=== PATIENT | male | born 1960 | race Caucasian/White ===

== ENCOUNTER 2016-06-07 17:43 | Emergency (ER) | payer OTHER ==
[~2016-06-07] VITALS: Ht 172.7 cm; Wt 97.0 kg
[2016-06-07 18:00] VITALS: BP 151/100; PULSE 102; RESP 20; TEMP 97.4; O2SAT 96
[2016-06-07 19:07] LABS: AMPHETAMINE, URINE NEG (NEG); BARBITURATES, URINE NEG (NEG); COCAINE, URINE POS (NEG)
[2016-06-07 19:17] LABS: ANION GAP 12 MEQ/L (5-15); AST (GOT) 120 U/L (15-37); BLOOD UREA NITROGEN 3 MG/DL (7-18); CHLORIDE 103 MEQ/L (98-107); GLOMERULAR FILTRATION RATE 83 ML/MIN (>89); POTASSIUM 3.5 MEQ/L (3.5-5.1); SODIUM (NA) 140 MEQ/L (136-145)
[2016-06-07 19:24] LABS: ALKALINE PHOSPHATASE 105 U/L (45-117); ALT (GPT) 72 U/L (12-78); TOTAL BILIRUBIN ADULT 0.7 MG/DL (0.2-1.0)
--- NOTE | 2016-06-07 19:29 | PD ---
HPI Chief Complaint: Psychiatric Symptoms Time Seen by Provider: 19:25 Travel History International Travel<30 days: No Contact w/Intl Traveler<30days: No Traveled to known affect area: No History of Present Illness HPI 55-year-old male that presents to the ED for evaluation of Sage act. Patient was prescribed by police after apparently he was found intoxicated and making suicidal statements. Patient has a history of chronic alcohol abuse and has been here before for same. Patient denies any medical problems and states that he used to be on medications but no longer takes them because he has no follow- up. He denies any homicidal or suicidal ideation to me stating that now that he 's been sleeping he feels better. Per patient he did drink a lot today. He states using cocaine the past. Denies any chest or shortness of breath. No abdominal pain. No hallucinations. History of depression and states that he self medicates with alcohol. Denies any allergies to medication. Other medical problems. Has history of PTSD. PFSH Past Medical History Hx Anticoagulant Therapy: No Arthritis: Yes Anxiety: Yes Depression: Yes Heart Rhythm Problems: No Cancer: No Cardiac Catheterization: No Cardiovascular Problems: No High Cholesterol: No Chemotherapy: No Congestive Heart Failure: No Cerebrovascular Accident: No Diabetes: No Patient Takes Glucophage: No Diminished Hearing: No Endocrine: No Genitourinary: No Hypertension: Yes Immune Disorder: No Implanted Vascular Access Dvce: No Neurologic: Yes Psychiatric: Yes (PTSD) Reproductive: No Respiratory: No Integumentary: Yes Immunizations Current: Yes Tetanus Vaccination: < 5 Years Influenza Vaccination: No Past Surgical History Abdominal Surgery: Yes (hernia x 2) Coronary Artery Bypass Graft: No Hysterectomy: No Other Surgery: Yes (R HAND, HEMMHROIDECTOMY X 2, TESTICULAR) Social History Alcohol Use: Yes (DAILY "TOO MUCH") Tobacco Use: Yes (<1PPD) Substance Use: Yes Allergies-Medications (Allergen,Severity, Reaction): Coded Allergies: No Known Allergies (Unverified , 12/22/15) Reported Meds & Prescriptions Reported Meds & Active Scripts Active No Active Prescriptions or Reported Medications Review of Systems ROS Limitations: Intoxication Except as stated in HPI: all other systems reviewed are Neg Physical Exam Exam Limitations: Intoxication Narrative GENERAL: SKIN: Warm and dry. HEAD: Atraumatic. Normocephalic. EYES: Pupils equal and round. No scleral icterus. No injection or drainage. ENT: No nasal bleeding or discharge. Mucous membranes pink and moist. NECK: Trachea midline. No JVD. CARDIOVASCULAR: Regular rate and rhythm. No murmurs, S3, S4. RESPIRATORY: No accessory muscle use. Clear to auscultation. Breath sounds equal bilaterally. GASTROINTESTINAL: Abdomen soft, non-tender, nondistended. Hepatic and splenic margins not palpable. MUSCULOSKELETAL: Extremities without clubbing, cyanosis, or edema. No obvious deformities. Full range of motion of the upper and lower extremities bilaterally. 2+ pulses bilaterally. NEUROLOGICAL: Awake and alert. No obvious cranial nerve deficits. Motor grossly within normal limits. Five out of 5 muscle strength in the arms and legs. Normal speech. PSYCHIATRIC: Intoxicated mood and affect; insight and judgment normal. Data Data Last Documented VS Vital Signs Date Time Temp Pulse Resp B/P Pulse Ox O2 Delivery O2 Flow Rate FiO2 06/07/16 18:00 97.4 102 20 151/100 96 Room Air Orders Diet Regular Basic (06/07/16 Dinner) Complete Blood Count With Diff (06/07/16 18:34) Comprehensive Metabolic Panel (06/07/16 18:34) Drug Screen, Random Urine (06/07/16 18:34) Alcohol (Ethanol) (06/07/16 18:34) Psych Screen (06/07/16 18:34) Labs Laboratory Tests Test 06/07/16 06/07/16 18:20 18:40 Sodium Level 140 MEQ/L Potassium Level 3.5 MEQ/L Chloride Level 103 MEQ/L Carbon Dioxide Level 25.0 MEQ/L Anion Gap 12 MEQ/L Blood Urea Nitrogen 3 MG/DL Creatinine 0.94 MG/DL Estimat Glomerular Filtration 83 ML/MIN Rate Random Glucose 202 MG/DL Calcium Level 8.3 MG/DL Aspartate Amino Transf 120 U/L (AST/SGOT) Albumin 4.1 GM/DL Urine Opiates Screen NEG Urine Barbiturates Screen NEG Urine Amphetamines Screen NEG Urine Benzodiazepines Screen NEG Urine Cocaine Screen POS Urine Cannabinoids Screen NEG MDM Medical Decision Making Medical Screen Exam Complete: Yes Emergency Medical Condition: Yes Medical Record Reviewed: Yes Interpretation(s) Tox screen positive for cocaine and alcohol BMP Diagram 06/07/16 18:20 Differential Diagnosis Depression versus suicidal ideation versus anxiety versus adjustment disorder versus mood disorder versus bipolar disorder versus schizophrenia versus paranoid disorder versus psychosis versus substance abuse versus alcohol abuse versus alcohol induced psychosis versus homicidality addition versus cutting versus personality disorder Narrative Course 55-year-old male that presents to the ED for evaluation of a Sage act. Patient was properly examined and was found to have signs and symptoms consistent appears to be alcohol abuse and psychiatric illness. Patient will have blood work. Blood work was within normal limits. Patient was medically cleared. Okay to be seen by psych. Mental health screening was discussed with the patient. Diagnosis Primary Impression: Suicidal ideation Additional Impression: Alcohol abuse Scripts No Active Prescriptions or Reported Meds Brandon Julien Jun 07, 2016 19:29
[2016-06-07 19:42] LABS: AUTOMATED NEUTROPHIL # 3.5 TH/MM3 (1.8-7.7); EOSINOPHIL # 0.1 TH/MM3 (0-0.4); EOSINOPHIL % 1.1 % (0.0-4.0); HEMATOCRIT 44.9 % (39.0-51.0); HEMO FLAGS DIFF FINAL; LYMPH % 15.9 % (9.0-44.0); LYMPHOCYTE # 0.8 TH/MM3 (1.0-4.8); MEAN CELL VOLUME 93.4 FL (80.0-100.0); MEAN CORPUSCULAR HEMOGLOBIN 32.9 PG (27.0-34.0); MEAN CORPUSCULAR HGB CONC 35.2 % (32.0-36.0); MONO % 11.9 % (0.0-8.0); NEUT % 70.1 % (16.0-70.0); PLATELET COUNT 179 TH/MM3 (150-450); RED CELL DISTRIBUTION WIDTH 13.4 % (11.6-17.2)
[2016-06-07] MEDS ORDERED: LORazepam 2 MG/ML VIAL IV PUSH PRN ×4 (20:45)
[2016-06-07] MEDS ORDERED: ACETAMINOPHEN 325 MG TAB PO PRN (20:45)
[2016-06-07] MEDS ORDERED: LORazepam 2 MG TAB PO PRN (20:45)
[2016-06-07] MEDS ORDERED: LORazepam 1 MG TAB PO PRN (20:45)
[2016-06-07] MEDS ORDERED: FLUMAZENIL 0.5 MG/5 ML VIAL IV PUSH PRN (20:45)
[2016-06-07] MEDS ORDERED: ONDANSETRON HCL 4 MG/2 ML VIAL IV PUSH PRN (20:45)
[2016-06-07 23:28] VITALS: BP 133/77; PULSE 104; RESP 18; O2SAT 96
== END 2016-06-08 00:47 ==
LOC: NEPJ 17:43
DX: F10.14 Alcohol abuse with alcohol-induced mood disorder (principal); F10.129 Alcohol abuse with intoxication, unspecified; R45.851 Suicidal ideations
CPT/HCPCS: 80053; 80307; 80320; 85025; 99285

== ENCOUNTER 2016-07-30 16:21 | Emergency (ER) | payer OTHER ==
[~2016-07-30] VITALS: Ht 172.7 cm; Wt 89.5 kg
[2016-07-30 16:23] VITALS: BP 188/121; PULSE 104; RESP 16; TEMP 97.9; O2SAT 97
--- NOTE | 2016-07-30 17:49 | PD ---
HPI Chief Complaint: Diabetic Time Seen by Provider: 17:45 Travel History International Travel<30 days: No Contact w/Intl Traveler<30days: No History of Present Illness HPI Patient is a 55-year-old male presenting to the emergency department for evaluation of elevated blood sugar readings at home. Patient states he was never formally diagnosed with diabetes however he started noticing visual changes as well as increased thirst suddenly started checking his blood sugars at home 2 weeks ago. Since that time he's had a reading over 600, 429 and then he started changing his diet and only drinking water and the blood sugars came down to the lower 200s. Patient also reports having some chest discomfort in the mid sternum wall waiting in the emergency department today. He has a history of hypertension but is not on any medications, he states that he cannot get to the [place] [facility] which is approximately a mile and a half away from his home. He does endorse daily tobacco use as well as alcohol use. He states that he has cut back on his alcohol consumption since his blood sugar readings have been elevated. [facility] had elevated blood sugar readings and was advised to come to emergency department immediately for evaluation. PFSH Past Medical History Hx Anticoagulant Therapy: No Arthritis: Yes Anxiety: Yes Depression: Yes Heart Rhythm Problems: No Cancer: No Cardiac Catheterization: No Cardiovascular Problems: No High Cholesterol: No Chemotherapy: No Congestive Heart Failure: No Cerebrovascular Accident: No Diabetes: No Diminished Hearing: No Endocrine: No Genitourinary: No Hypertension: Yes Immune Disorder: No Implanted Vascular Access Dvce: No Neurologic: Yes Psychiatric: Yes (PTSD) Reproductive: No Respiratory: No Integumentary: Yes Immunizations Current: Yes Past Surgical History Abdominal Surgery: Yes (hernia x 2) Coronary Artery Bypass Graft: No Hysterectomy: No Other Surgery: Yes (R HAND, HEMMHROIDECTOMY X 2, TESTICULAR) Social History Alcohol Use: Yes (DAILY "TOO MUCH") Tobacco Use: Yes (<1PPD) Substance Use: Yes Allergies-Medications (Allergen,Severity, Reaction): Coded Allergies: No Known Allergies (Unverified , 07/30/16) Reported Meds & Prescriptions Reported Meds & Active Scripts Active No Active Prescriptions or Reported Medications Review of Systems Except as stated in HPI: all other systems reviewed are Neg Eyes: Positive: Visual changes Cardiovascular: Positive: Chest Pain or Discomfort Respiratory: No: Shortness of Breath Gastrointestinal: No: Nausea, Abdominal Pain Neurologic: No: Dizziness Endocrine: Positive: Polydipsia Physical Exam Narrative GENERAL: Well-developed, well-nourished, alert male. Appears older than stated age, resting comfortably in no acute distress. SKIN: Warm and dry. HEAD: Atraumatic. Normocephalic. EYES: Pupils equal and round. No scleral icterus. No injection or drainage. ENT: No nasal bleeding or discharge. Mucous membranes pink and moist. NECK: Trachea midline. No JVD. CARDIOVASCULAR: Regular rate and rhythm. No murmur appreciated. RESPIRATORY: No accessory muscle use. Clear to auscultation. Breath sounds equal bilaterally. GASTROINTESTINAL: Abdomen soft, non-tender, nondistended. Hepatic and splenic margins not palpable. MUSCULOSKELETAL: No obvious deformities. No clubbing. No cyanosis. No edema. NEUROLOGICAL: Awake and alert. No obvious cranial nerve deficits. Motor grossly within normal limits. Normal speech. PSYCHIATRIC: Appropriate mood and affect; insight and judgment normal. Data Data Last Documented VS Vital Signs Date Time Temp Pulse Resp B/P Pulse Ox O2 Delivery O2 Flow Rate FiO2 07/30/16 18:50 85 160/105 07/30/16 18:44 98 07/30/16 18:37 20 Room Air 07/30/16 16:23 97.9 Orders Electrocardiogram (07/30/16 17:43) Ckmb (Isoenzyme) Profile (07/30/16 17:43) Complete Blood Count With Diff (07/30/16 17:43) Comprehensive Metabolic Panel (07/30/16 17:43) Magnesium (Mg) (07/30/16 17:43) Prothrombin Time / Inr (Pt) (07/30/16 17:43) Act Partial Throm Time (Ptt) (07/30/16 17:43) Troponin I (07/30/16 17:43) Chest, Pa & Lat (07/30/16 17:43) Blood Gas Venous (Vbg) (07/30/16 17:43) Urinalysis - C+S If Indicated (07/30/16 18:04) Labs Laboratory Tests Test 07/30/16 18:04 White Blood Count 9.2 TH/MM3 Red Blood Count 4.63 MIL/MM3 Hemoglobin 15.4 GM/DL Hematocrit 43.9 % Mean Corpuscular Volume 94.9 FL Mean Corpuscular Hemoglobin 33.2 PG Mean Corpuscular Hemoglobin 35.0 % Concent Red Cell Distribution Width 12.6 % Platelet Count 259 TH/MM3 Mean Platelet Volume 7.9 FL Neutrophils (%) (Auto) 84.6 % Lymphocytes (%) (Auto) 6.1 % Monocytes (%) (Auto) 7.5 % Eosinophils (%) (Auto) 1.5 % Basophils (%) (Auto) 0.3 % Neutrophils # (Auto) 7.8 TH/MM3 Lymphocytes # (Auto) 0.6 TH/MM3 Monocytes # (Auto) 0.7 TH/MM3 Eosinophils # (Auto) 0.1 TH/MM3 Basophils # (Auto) 0.0 TH/MM3 CBC Comment DIFF FINAL Differential Comment Prothrombin Time 11.4 SEC Prothromb Time International 1.0 RATIO Ratio Activated Partial 34.1 SEC Thromboplast Time Urine Color YELLOW Urine Turbidity CLEAR Urine pH 5.5 Urine Specific Thermal 1.011 Urine Protein NEG mg/dL Urine Glucose (UA) 300 mg/dL Urine Ketones TRACE mg/dL Urine Occult Blood NEG Urine Nitrite NEG Urine Bilirubin NEG Urine Urobilinogen LESS THAN 2.0 MG/DL Urine Leukocyte Esterase NEG Urine WBC LESS THAN 1 /hpf Microscopic Urinalysis Comment CULT NOT INDICATED Sodium Level 133 MEQ/L Potassium Level 4.3 MEQ/L Chloride Level 97 MEQ/L Carbon Dioxide Level 26.4 MEQ/L Anion Gap 10 MEQ/L Blood Urea Nitrogen 10 MG/DL Creatinine 0.87 MG/DL Estimat Glomerular Filtration 90 ML/MIN Rate Random Glucose 236 MG/DL Calcium Level 9.0 MG/DL Magnesium Level 1.6 MG/DL Total Bilirubin 0.6 MG/DL Aspartate Amino Transf 70 U/L (AST/SGOT) Alanine Aminotransferase 74 U/L (ALT/SGPT) Alkaline Phosphatase 79 U/L Total Creatine Kinase 31 U/L Troponin I LESS THAN 0.02 NG/ML Total Protein 7.7 GM/DL Albumin 3.8 GM/DL MDM Medical Decision Making Medical Screen Exam Complete: Yes Emergency Medical Condition: Yes Interpretation(s) Vital Signs Date Time Temp Pulse Resp B/P Pulse Ox O2 Delivery O2 Flow Rate FiO2 07/30/16 16:23 97.9 104 16 188/121 97 Differential Diagnosis Hypertensive urgency versus acute coronary syndrome versus type 2 diabetes versus DKA versus cardiac arrhythmia versus electrolyte abnormality versus dehydration versus other Narrative Course Patient's 55-year-old male presenting to the emergency department evaluation of elevated blood sugar readings as well as chest pain. Patient has not had good follow-up with primary care. He has a history of hypertension which he no longer takes medications for due to transportation issues. Workup initiated in triage, care patient will be transferred to provide her with a medical bed is available. Scripts No Active Prescriptions or Reported Meds Vianney Andrew Jul 30, 2016 17:49
--- NOTE | 2016-07-30 18:20 | RADRPT ---
EXAM DATE/TIME: 07/30/2016 18:04 [facility] COMPARISON: No previous studies available for comparison. INDICATIONS : Chest pain. MEDICAL HISTORY : Diabetes mellitus type II. SURGICAL HISTORY : None. ENCOUNTER: Initial ACUITY: 1 day PAIN SCORE: 10 LOCATION: Left middle chest. FINDINGS: PA and lateral views of the chest demonstrate the lungs to be symmetrically aerated without evidence of mass, infiltrate or effusion. The cardiomediastinal contours are unremarkable. Osseous structure s are intact. CONCLUSION: No acute disease. Davi Crowell MD on July 30, 2016 at 18:19 Board Certified Radiologist. This report was verified electronically.
[2016-07-30 18:27] LABS: AUTOMATED NEUTROPHIL # 7.8 TH/MM3 (1.8-7.7); BASOPHIL % 0.3 % (0.0-2.0); EOSINOPHIL # 0.1 TH/MM3 (0-0.4); EOSINOPHIL % 1.5 % (0.0-4.0); HEMATOCRIT 43.9 % (39.0-51.0); HEMO FLAGS DIFF FINAL; LYMPH % 6.1 % (9.0-44.0); LYMPHOCYTE # 0.6 TH/MM3 (1.0-4.8); MEAN CELL VOLUME 94.9 FL (80.0-100.0); MEAN CORPUSCULAR HEMOGLOBIN 33.2 PG (27.0-34.0); MONO % 7.5 % (0.0-8.0); NEUT % 84.6 % (16.0-70.0); PLATELET COUNT 259 TH/MM3 (150-450); RED BLOOD COUNT 4.63 MIL/MM3 (4.50-5.90); RED CELL DISTRIBUTION WIDTH 12.6 % (11.6-17.2); WHITE BLOOD COUNT 9.2 TH/MM3 (4.0-11.0)
[2016-07-30 18:31] LABS: BLOOD, URINE NEG (NEG); GLUCOSE,URINE 300 mg/dL (NEG); KETONE, URINE TRACE mg/dL (NEG); NITRITE,URINE NEG (NEG); PH, URINE 5.5 (5.0-8.5); URINE COLOR YELLOW (YELLW/STRAW)
[2016-07-30 18:35] LABS: COMMENT (UR) CULT NOT INDICATED; CULTURE IF INDICATED CULT NOT INDICATED
[2016-07-30 18:37] VITALS: BP 166/102; PULSE 88; RESP 20; O2SAT 96
[2016-07-30 18:50] VITALS: BP 160/105; PULSE 85
[2016-07-30 18:54] LABS: APTT (PATIENT) 34.1 SEC (24.3-30.1); PROTHROMBIN TIME - PATIENT 11.4 SEC (9.8-11.6)
[2016-07-30 18:55] LABS: ANION GAP 10 MEQ/L (5-15); AST (GOT) 70 U/L (15-37); BICARBONATE 26.4 MEQ/L (21.0-32.0); BLOOD UREA NITROGEN 10 MG/DL (7-18); CHLORIDE 97 MEQ/L (98-107); GLOMERULAR FILTRATION RATE 90 ML/MIN (>89); MAGNESIUM 1.6 MG/DL (1.5-2.5); POTASSIUM 4.3 MEQ/L (3.5-5.1); SODIUM (NA) 133 MEQ/L (136-145)
[2016-07-30 19:00] LABS: ALKALINE PHOSPHATASE 79 U/L (45-117); ALT (GPT) 74 U/L (12-78); TOTAL BILIRUBIN ADULT 0.6 MG/DL (0.2-1.0)
[2016-07-30 19:06] LABS: CREATINE KINASE 31 U/L (39-308)
--- NOTE | 2016-07-30 19:59 | PD ---
Physical Exam Date Seen by Provider: Jul 30, 2016 Data Data Last Documented VS Vital Signs Date Time Temp Pulse Resp B/P Pulse Ox O2 Delivery O2 Flow Rate FiO2 07/30/16 18:50 85 160/105 07/30/16 18:44 98 07/30/16 18:37 20 Room Air 07/30/16 16:23 97.9 Orders Electrocardiogram (07/30/16 17:43) Ckmb (Isoenzyme) Profile (07/30/16 17:43) Complete Blood Count With Diff (07/30/16 17:43) Comprehensive Metabolic Panel (07/30/16 17:43) Magnesium (Mg) (07/30/16 17:43) Prothrombin Time / Inr (Pt) (07/30/16 17:43) Act Partial Throm Time (Ptt) (07/30/16 17:43) Troponin I (07/30/16 17:43) Chest, Pa & Lat (07/30/16 17:43) Blood Gas Venous (Vbg) (07/30/16 17:43) Urinalysis - C+S If Indicated (07/30/16 18:04) Metformin (Glucophage) (07/30/16 20:00) Lisinopril (Prinivil) (07/30/16 20:00) Labs Laboratory Tests Test 07/30/16 18:04 White Blood Count 9.2 TH/MM3 Red Blood Count 4.63 MIL/MM3 Hemoglobin 15.4 GM/DL Hematocrit 43.9 % Mean Corpuscular Volume 94.9 FL Mean Corpuscular Hemoglobin 33.2 PG Mean Corpuscular Hemoglobin 35.0 % Concent Red Cell Distribution Width 12.6 % Platelet Count 259 TH/MM3 Mean Platelet Volume 7.9 FL Neutrophils (%) (Auto) 84.6 % Lymphocytes (%) (Auto) 6.1 % Monocytes (%) (Auto) 7.5 % Eosinophils (%) (Auto) 1.5 % Basophils (%) (Auto) 0.3 % Neutrophils # (Auto) 7.8 TH/MM3 Lymphocytes # (Auto) 0.6 TH/MM3 Monocytes # (Auto) 0.7 TH/MM3 Eosinophils # (Auto) 0.1 TH/MM3 Basophils # (Auto) 0.0 TH/MM3 CBC Comment DIFF FINAL Differential Comment Prothrombin Time 11.4 SEC Prothromb Time International 1.0 RATIO Ratio Activated Partial 34.1 SEC Thromboplast Time Urine Color YELLOW Urine Turbidity CLEAR Urine pH 5.5 Urine Specific Rose 1.011 Urine Protein NEG mg/dL Urine Glucose (UA) 300 mg/dL Urine Ketones TRACE mg/dL Urine Occult Blood NEG Urine Nitrite NEG Urine Bilirubin NEG Urine Urobilinogen LESS THAN 2.0 MG/DL Urine Leukocyte Esterase NEG Urine WBC LESS THAN 1 /hpf Microscopic Urinalysis Comment CULT NOT INDICATED Sodium Level 133 MEQ/L Potassium Level 4.3 MEQ/L Chloride Level 97 MEQ/L Carbon Dioxide Level 26.4 MEQ/L Anion Gap 10 MEQ/L Blood Urea Nitrogen 10 MG/DL Creatinine 0.87 MG/DL Estimat Glomerular Filtration 90 ML/MIN Rate Random Glucose 236 MG/DL Calcium Level 9.0 MG/DL Magnesium Level 1.6 MG/DL Total Bilirubin 0.6 MG/DL Aspartate Amino Transf 70 U/L (AST/SGOT) Alanine Aminotransferase 74 U/L (ALT/SGPT) Alkaline Phosphatase 79 U/L Total Creatine Kinase 31 U/L Troponin I LESS THAN 0.02 NG/ML Total Protein 7.7 GM/DL Albumin 3.8 GM/DL [facility] Medical Record Reviewed: Yes Supervised Visit with JARED: Yes Interpretation(s) Vital Signs Date Time Temp Pulse Resp B/P Pulse Ox O2 Delivery O2 Flow Rate FiO2 07/30/16 18:50 85 160/105 07/30/16 18:44 87 98 07/30/16 18:37 88 20 166/102 96 Room Air 07/30/16 16:23 97.9 104 16 188/121 97 CBC & BMP Diagram 07/30/16 18:04 Last Impressions Chest X-Ray 07/30/16 1743 Signed Impressions: Service Date/Time: Saturday, July 30, 2016 18:04 - CONCLUSION: No acute disease. Davi Crowell MD Differential Diagnosis New-onset diabetes, Hypertension, hypertensive urgency, DKA, electrolyte abnormality Narrative Course I, Dr. Saenz, have reviewed the advance practice practitioner's documentation and am in agreement, met with the patient face to face, made the diagnosis, and the medical decision making was done by me. *My assessment and Findings: Patient is a 55-year-old male who presents to emergency room for evaluation of possible new onset diabetes as well as hypertension. Patient reports that he has history of hypertension, reports that he was on lisinopril 12.5mg in the past but was changed to a different blood [facility] by the [facility] for no reason as per his recollection and patient cannot remember the name of the blood pressure medication, reports that he has since run out of his antihypertensives and has not taking any blood pressure medications in the past few months. Patient reports that he has been having some visual changes over the past 2 weeks, reports that his roommate thought that he may have diabetes and checked his blood sugar. Patient reports that his blood sugars 2 weeks ago were greater than 600. Patient reports that he has been monitoring his blood sugars and notes that his blood sugars range from the highest over 600 and the lowest BS was 198. Patient reports that he has since stopped drinking alcohol and has been watching his blood sugar carefully. Patient reports that [facility] and was told to go straight to the [facility] for evaluation. Patient at this time with no complaints. Patient reports that he feels fine, denies any chest pain or shortness of breath. Patient denies any headache or dizziness. Patient does report some polydipsia as well as polyuria which he has noticed over the past 2 weeks. Vital Signs Date Time Temp Pulse Resp B/P Pulse Ox O2 Delivery O2 Flow Rate FiO2 07/30/16 18:50 85 160/105 07/30/16 18:44 87 98 07/30/16 18:37 88 20 166/102 96 Room Air 07/30/16 16:23 97.9 104 16 188/121 97 Patient vital signs hypertensive with a blood pressure of 188/121 upon arrival to emergency room, blood pressure now is 160/105.CBC & BMP Diagram 07/30/16 18:04 Patient with no end organ damage on his lab work, BS is 236. UA shows trace ketones, 300 glucose X-ray the chest shows no acute disease Plan to restart patient on his lisinopril 12.5 mg, will start him on metformin 500 mg twice a day as patient is most likely a new onset diabetic. Patient does present to emergency room with a list of his blood sugars over the past 2 weeks, blood sugars have been elevated with a highest blood sugars greater than 600 in the lowest 188. With patient's blood sugars today of 236 and ketones in urine, patient most likely with diagnoses of diabetes. Patient understands importance of [facility] with [facility] for [facility]up Signs and symptoms of when to return to the emergency room was reviewed with patient in detail. Patient will return to emergency room as needed. Diagnosis Primary Impression: Hypertension Qualified Code: I10 - Essential hypertension Additional Impressions: Hyperglycemia Dehydration Additional Instruction: Please provide patient with a copy of his lab work at discharge Please call your doctor first thing in the morning for earliest follow-up Please return to emergency room as needed Please monitor blood sugars Med/Other Pt SpecificInfo: Prescription(s) given Scripts Metformin 500 Mg Pax691 Mg PO BIDPC #60 TAB Ref 0 With meals Prov:Delilah Saenz DO 07/30/16 Lisinopril 5 Mg Tab5 Mg PO DAILY #30 TAB Ref 0 Prov:Delilah Saenz DO 07/30/16 Disposition: 01 DISCHARGE HOME Condition: Stable Delilah Saenz DO Jul 30, 2016 19:59
[2016-07-30] MEDS ORDERED: LISINOPRIL 5 MG TAB PO ONE (20:00)
[2016-07-30] MEDS ORDERED: metFORMIN HCL 500 MG TAB PO ONE (20:00)
[2016-07-30] MEDS ORDERED: METF500T PO (20:46)
[2016-07-30] MEDS ORDERED: LISI-519 PO (20:46)
[2016-07-30 20:54] VITALS: BP 136/89
--- NOTE | 2016-07-31 20:09 | EKG ---
Date Performed: 07/30/2016 Time Performed: 18:11:20 PTAGE: 55 years EKG: Sinus rhythm POSSIBLE LEFT ATRIAL ENLARGEMENT BORDERLINE ECG PREVIOUS TRACING : 09/21/2015 02.43 Compared to prior tracing no significant change DOCTOR: Alessandra Wong Interpretating Date/Time 07/31/2016 20:08:06
== END 2016-07-30 21:03 | disposition home or self-care (01) ==
LOC: NEPE 16:21
DX: I10 Essential (primary) hypertension (principal); R73.9 Hyperglycemia, unspecified; E86.0 Dehydration; R07.9 Chest pain, unspecified; R63.1 Polydipsia; F43.10 Post-traumatic stress disorder, unspecified; F17.210 Nicotine dependence, cigarettes, uncomplicated
CPT/HCPCS: 71020; 80053; 81001; 82550; 83735; 84484; 85025; 85610; 85730; 93005

== ENCOUNTER 2016-11-18 17:20 | Inpatient (IN) | payer MEDICARE, OTHER ==
[~2016-11-18] VITALS: Ht 172.7 cm; Wt 83.4 kg
[~2016-11-18 17:20] MED LIST: LISI-519 PO; METF500T PO
[2016-11-18 17:22] VITALS: RESP 24
[2016-11-18 17:24] VITALS: BP 181/120; PULSE 152; RESP 26; TEMP 98.6; O2SAT 98
[2016-11-18] MEDS ORDERED: SODIUM CHLOR 0.9% 1000 ML INJ 1,000 ML IV ONE ×2 (17:34→19:00)
[2016-11-18 17:38] VITALS: O2SAT 97
[2016-11-18] MEDS ORDERED: LORazepam 2 MG/ML VIAL IVS ONE (17:45)
[2016-11-18] MEDS ORDERED: SODIUM CHLORIDE 0.9% FLUSH 10 ML FLUSH IVF PRN (17:45)
[2016-11-18 18:01] VITALS: BP 169/74; PULSE 120; RESP 22; O2SAT 98
[2016-11-18 18:25] LABS: AUTOMATED NEUTROPHIL # 6.3 TH/MM3 (1.8-7.7); BASOPHIL # 0.1 TH/MM3 (0-0.2); BASOPHIL % 0.8 % (0.0-2.0); HEMATOCRIT 44.7 % (39.0-51.0); LYMPH % 11.8 % (9.0-44.0); MEAN CELL VOLUME 98.4 FL (80.0-100.0); MEAN CORPUSCULAR HEMOGLOBIN 33.1 PG (27.0-34.0); MEAN CORPUSCULAR HGB CONC 33.6 % (32.0-36.0); MONO % 9.1 % (0.0-8.0); NEUT % 78.3 % (16.0-70.0); PLATELET COUNT 60 TH/MM3 (150-450); RED BLOOD COUNT 4.54 MIL/MM3 (4.50-5.90); RED CELL DISTRIBUTION WIDTH 15.7 % (11.6-17.2); WHITE BLOOD COUNT 8.1 TH/MM3 (4.0-11.0)
[2016-11-18 18:26] VITALS: BP 170/100; PULSE 117; RESP 20; O2SAT 99
[2016-11-18 18:32] LABS: HEMO FLAGS AUTO DIFF
[2016-11-18 18:41] LABS: ALT (GPT) 69 U/L (12-78); ANION GAP 27 MEQ/L (5-15); BICARBONATE 16.8 MEQ/L (21.0-32.0); BLOOD UREA NITROGEN 7 MG/DL (7-18); CHLORIDE 95 MEQ/L (98-107); GLOMERULAR FILTRATION RATE 48 ML/MIN (>89); MAGNESIUM 1.4 MG/DL (1.5-2.5); POTASSIUM 3.7 MEQ/L (3.5-5.1); SODIUM (NA) 139 MEQ/L (136-145)
--- NOTE | 2016-11-18 18:51 | PD ---
HPI Chief Complaint: Anxiety Time Seen by Provider: 17:28 Travel History International Travel<30 days: No Contact w/Intl Traveler<30days: No Traveled to known affect area: No History of Present Illness HPI The patient is a 55-year-old male who presents to the emergency department for anxiety. The patient states he has a history of alcohol abuse and stopped drinking 2-3 days ago. The patient normally drinks for Budwe[employer] beers per day or more, does have a history of previous alcohol withdrawal. He now complains of shaking, and extreme anxiety, and occasional illusions where he sees objects out of the corners of his eyes. The patient does not currently have a primary physician. He does complain of tremors and anxiety, denies any acute chest pain, shortness of breath, nausea, vomiting, or abdominal pain. Symptoms are moderate, possibly exacerbated by not drinking alcohol, and there are no current alleviating factors. PFSH Past Medical History Hx Anticoagulant Therapy: No Arthritis: Yes Anxiety: Yes Depression: Yes Heart Rhythm Problems: No Cancer: No Cardiac Catheterization: No Cardiovascular Problems: No High Cholesterol: No Chemotherapy: No Congestive Heart Failure: No Cerebrovascular Accident: No Diabetes: Yes Patient Takes Glucophage: Yes (metformin) Diminished Hearing: No Endocrine: No Genitourinary: No Hypertension: Yes (va took off lisinopril) Immune Disorder: No Implanted Vascular Access Dvce: No Neurologic: Yes Psychiatric: Yes (PTSD) Reproductive: No Respiratory: No Integumentary: Yes Immunizations Current: Yes Past Surgical History Abdominal Surgery: Yes (hernia x 2) Coronary Artery Bypass Graft: No Hysterectomy: No Other Surgery: Yes (R HAND, HEMMHROIDECTOMY X 2, TESTICULAR) Social History Alcohol Use: Yes (DAILY "TOO MUCH") Tobacco Use: Yes (<1PPD) Substance Use: No Allergies-Medications (Allergen,Severity, Reaction): Coded Allergies: No Known Allergies (Unverified , 07/30/16) Reported Meds & Prescriptions Reported Meds & Active Scripts Active Metformin (Metformin HCl) 500 Mg Tab 500 Mg PO BIDPC With meals Lisinopril 5 Mg Tab 5 Mg PO DAILY Review of Systems Except as stated in HPI: all other systems reviewed are Neg General / Constitutional: No: Fever HENT: Positive: Lightheadedness Cardiovascular: Positive: Tachycardia, No: Chest Pain or Discomfort Respiratory: No: Shortness of Breath Gastrointestinal: No: Nausea, Vomiting, Abdominal Pain Musculoskeletal: Positive: Weakness Neurologic: Positive: Dizziness, Tremor Psychiatric: Positive: Anxiety, Substance Abuse (alcohol abuse) Physical Exam Narrative GENERAL: Awake, alert, pleasant 55-year-old male who appears his stated age and is mildly tremulous. SKIN: Focused skin assessment warm/dry. HEAD: Atraumatic. Normocephalic. EYES: Pupils equal and round. Pupils are 3 mm bilateral and reactive. ENT: No nasal bleeding or discharge. Mucous membranes pink and moist. NECK: Trachea midline. No JVD. CARDIOVASCULAR: Regular, tachycardic with a heart rate of 130. RESPIRATORY: No accessory muscle use. Clear to auscultation. Breath sounds equal bilaterally. GASTROINTESTINAL: Abdomen soft, non-tender, nondistended. No rebound tenderness. MUSCULOSKELETAL: No obvious deformities. No clubbing. No cyanosis. No edema. Mildly tremulous. NEUROLOGICAL: Awake and alert. No obvious cranial nerve deficits. Motor grossly within normal limits. Normal speech. Alert and oriented 4. Mildly tremulous. PSYCHIATRIC: Appears slightly anxious. Data Data Last Documented VS Vital Signs Date Time Temp Pulse Resp B/P Pulse Ox O2 Delivery O2 Flow Rate FiO2 11/18/16 18:26 117 20 170/100 99 Room Air 11/18/16 17:24 98.6 Orders Complete Blood Count With Diff (11/18/16 17:34) Alcohol (Ethanol) (11/18/16 17:34) Drug Screen, Random Urine (11/18/16 17:34) Electrocardiogram (11/18/16 ) Blood Glucose (11/18/16 17:34) Ecg Monitoring (11/18/16 17:34) Iv Access Insert/Monitor (11/18/16 17:34) Oximetry (11/18/16 17:34) Comprehensive Metabolic Panel (11/18/16 17:34) Sodium Chlor 0.9% 1000 Ml Inj (Ns 1000 M (11/18/16 17:34) Sodium Chloride 0.9% Flush (Ns Flush) (11/18/16 17:45) Lorazepam Inj (Ativan Inj) (11/18/16 17:45) Magnesium (Mg) (11/18/16 17:34) Labs Laboratory Tests Test 11/18/16 17:44 White Blood Count 8.1 TH/MM3 Red Blood Count 4.54 MIL/MM3 Hemoglobin 15.0 GM/DL Hematocrit 44.7 % Mean Corpuscular Volume 98.4 FL Mean Corpuscular Hemoglobin 33.1 PG Mean Corpuscular Hemoglobin 33.6 % Concent Red Cell Distribution Width 15.7 % Platelet Count 60 TH/MM3 Mean Platelet Volume 9.0 FL Neutrophils (%) (Auto) 78.3 % Lymphocytes (%) (Auto) 11.8 % Monocytes (%) (Auto) 9.1 % Eosinophils (%) (Auto) 0.0 % Basophils (%) (Auto) 0.8 % Neutrophils # (Auto) 6.3 TH/MM3 Lymphocytes # (Auto) 1.0 TH/MM3 Monocytes # (Auto) 0.7 TH/MM3 Eosinophils # (Auto) 0.0 TH/MM3 Basophils # (Auto) 0.1 TH/MM3 CBC Comment AUTO DIFF MDM Medical Decision Making Medical Screen Exam Complete: Yes Emergency Medical Condition: Yes Medical Record Reviewed: Yes Interpretation(s) EKG reveals sinus tachycardia with a heart rate of 116. No ischemic changes or ectopy noted. Differential Diagnosis Differential diagnosis includes alcohol withdrawal, panic attack, anxiety, pulmonary embolism, hyperthyroidism, electrolyte abnormality. Narrative Course IV was established, labs are drawn and sent, and the patient was placed on cardiac telemetry monitoring and continuous pulse oximetry monitoring. EKG was ordered and interpreted. The patient was administered 2 L of IV fluids and Ativan 2 mg intravenously. The patient appears to have alcohol withdrawal, may require admission for increasing Ativan doses. The patient was signed out to the oncoming physician at 7 PM with laboratory evaluation pending. Patient will need his electrolytes replenished, most likely will need admission for alcohol withdrawal. Diagnosis Primary Impression: Alcohol withdrawal Qualified Code: F10.232 - Alcohol withdrawal, with perceptual disturbance Admitting Information Admitting Physician Requests: Admit Condition: Stable Lion Aguilar MD Nov 18, 2016 18:51
[2016-11-18 18:53] LABS: ALKALINE PHOSPHATASE 83 U/L (45-117); TOTAL BILIRUBIN ADULT 1.8 MG/DL (0.2-1.0)
[2016-11-18 19:03] LABS: AST (GOT) 100 U/L (15-37)
--- NOTE | 2016-11-18 19:29 | PD ---
Data Data Last Documented VS Vital Signs Date Time Temp Pulse Resp B/P Pulse Ox O2 Delivery O2 Flow Rate FiO2 11/18/16 18:26 117 20 170/100 99 Room Air 11/18/16 17:24 98.6 Orders Complete Blood Count With Diff (11/18/16 17:34) Alcohol (Ethanol) (11/18/16 17:34) Drug Screen, Random Urine (11/18/16 17:34) Electrocardiogram (11/18/16 ) Blood Glucose (11/18/16 17:34) Ecg Monitoring (11/18/16 17:34) Iv Access Insert/Monitor (11/18/16 17:34) Oximetry (11/18/16 17:34) Comprehensive Metabolic Panel (11/18/16 17:34) Sodium Chlor 0.9% 1000 Ml Inj (Ns 1000 M (11/18/16 17:34) Sodium Chloride 0.9% Flush (Ns Flush) (11/18/16 17:45) Lorazepam Inj (Ativan Inj) (11/18/16 17:45) Magnesium (Mg) (11/18/16 17:34) Sodium Chlor 0.9% 1000 Ml Inj (Ns 1000 M (11/18/16 19:00) Labs Laboratory Tests Test 11/18/16 17:44 White Blood Count 8.1 TH/MM3 Red Blood Count 4.54 MIL/MM3 Hemoglobin 15.0 GM/DL Hematocrit 44.7 % Mean Corpuscular Volume 98.4 FL Mean Corpuscular Hemoglobin 33.1 PG Mean Corpuscular Hemoglobin 33.6 % Concent Red Cell Distribution Width 15.7 % Platelet Count 60 TH/MM3 Mean Platelet Volume 9.0 FL Neutrophils (%) (Auto) 78.3 % Lymphocytes (%) (Auto) 11.8 % Monocytes (%) (Auto) 9.1 % Eosinophils (%) (Auto) 0.0 % Basophils (%) (Auto) 0.8 % Neutrophils # (Auto) 6.3 TH/MM3 Lymphocytes # (Auto) 1.0 TH/MM3 Monocytes # (Auto) 0.7 TH/MM3 Eosinophils # (Auto) 0.0 TH/MM3 Basophils # (Auto) 0.1 TH/MM3 CBC Comment AUTO DIFF Sodium Level 139 MEQ/L Potassium Level 3.7 MEQ/L Chloride Level 95 MEQ/L Carbon Dioxide Level 16.8 MEQ/L Anion Gap 27 MEQ/L Blood Urea Nitrogen 7 MG/DL Creatinine 1.51 MG/DL Estimat Glomerular Filtration 48 ML/MIN Rate Random Glucose 161 MG/DL Calcium Level 9.2 MG/DL Magnesium Level 1.4 MG/DL Total Bilirubin 1.8 MG/DL Aspartate Amino Transf 100 U/L (AST/SGOT) Alanine Aminotransferase 69 U/L (ALT/SGPT) Alkaline Phosphatase 83 U/L Total Protein 8.7 GM/DL Albumin 4.6 GM/DL Ethyl Alcohol Level LESS THAN 3 MG/DL MDM Supervised Visit with JARED: No Narrative Course The patient was initially evaluated by the previous provider and sent out to me at the beginning of my shift pending labs and disposition. See his note for further details. Briefly this is a 55-year-old male who presented for feeling anxious. His heart rate was 140 upon arrival to the emergency department. The patient drinks alcohol daily, however decided to stop drinking 3 days ago. He has not had anything to eat in the last 2 days because he has no appetite. He was provided 2 L of normal saline IV as well as 2mg of Ativan IV by the previous provider. On my assessment the patient is sleeping comfortably, however his heart rate remains 115. He is easily arousable and has diffuse resting tremor. CBC is unremarkable. CMP is remarkable for bicarbonate 16.8, anion gap 27, creatinine 1.5, GFR 48, random glucose 161, magnesium 1.4, AST 100. Patient is clearly withdrawing from alcohol. He also has an anion gap metabolic acidosis which is likely alcoholic ketoacidosis/starvation ketoacidosis. He will be started on D5 half-normal saline at 100 cc per hour as well as a CIWA protocol. Case discussed with hospitalist Dr. Parkinson who will admit the patient to her service. Diagnosis Primary Impression: Alcohol withdrawal Qualified Code: F10.232 - Alcohol withdrawal, with perceptual disturbance Additional Impression: Metabolic acidosis Admitting Information Admitting Physician Requests: Admit Condition: Stable Jarod Graf MD Nov 18, 2016 19:29
[2016-11-18] MEDS ORDERED: LORazepam 2 MG/ML VIAL IV PUSH PRN ×4 (19:30)
[2016-11-18] MEDS ORDERED: FLUMAZENIL 0.5 MG/5 ML VIAL IV PUSH PRN (19:30)
[2016-11-18] MEDS ORDERED: LORazepam 2 MG TAB PO PRN (19:30)
[2016-11-18] MEDS: LORazepam 1 MG TAB PO PRN (19:34)
[2016-11-18 19:35] LABS: BANDS 4 % (0-6); METAMYELOCYTES 1 % (0-1); POLYS (SEG NEUTROPHILS) 82 % (16-70); WBC DIFF SAMPLE 100
[2016-11-18 19:36] LABS: PLATELET ESTIMATE SMEAR LOW (NORMAL); PLATELET MORPHOLOGY NORMAL (NORMAL); SCAN/DIFF FINAL DIFF MANUAL
--- NOTE | 2016-11-18 19:42 | HHI.HP ---
[facility] Service [facility] Primary Care Physician [facility] Admission Diagnosis alcohol withdrawal, metabolic acidosis Diagnoses: (1) Alcohol withdrawal Diagnosis: Principal (2) BLANCA (acute kidney injury) Diagnosis: Principal (3) Dehydration Diagnosis: Principal (4) Thrombocytopenia Diagnosis: Principal (5) Tobacco abuse Diagnosis: Principal (6) HTN (hypertension) Diagnosis: Principal (7) DM (diabetes mellitus) Diagnosis: Principal Travel History International Travel<30 Days: No Contact w/Intl Traveler <30 Da: No Traveled to Known Affected Are: No History of Present Illness This is a 55-year-old male with a PMH of Anxiety, Depression, PTSD, DM, Alcohol Abuse, h/o Cocaine Abuse and Tobacco Abuse presented to the ER with complaints of anxiety and tremors. Per patient he was trying to stop drinking, quit cold turkey approx 3 days ago and has had ongoing tremors/anxiety. Denies fever, chills, cough or chest pain. On arrival, BP 181/120, HR 152, O2 sat 98% on RA, Afebrile. BP currently 170/100, HR 117. CBC unremarkable except for thrombocytopenia, platelets 60, previously 259 on 07/30/16. Creatinine 1.51, previously 0.87 on 07/30/16. AG 27. Alcohol negative. S/p 2L IVF and started on CIWA Protocol in ER. Review of Systems Except as stated in HPI: all other systems reviewed are Neg ROS: 14 point review of systems otherwise negative. Past Family Social History Past Medical History PMH: Anxiety, Depression, PTSD, DM, Alcohol Abuse, h/o Cocaine Abuse and Tobacco Abuse Past Surgical History PAST SURGICAL HISTORY: Right Hand Surgery, Hernia Repair, Hemorrhoidectomy Allergies: Coded Allergies: No Known Allergies (Unverified , 07/30/16) Family History PAST FAMILY HISTORY: Reviewed. No h/o DM or CAD Social History PAST SOCIAL HISTORY: Positive for alcohol abuse. Smokes 1ppd. H/o Cocaine Abuse, denies recent use. Physical Exam Vital Signs Vital Signs Date Time Temp Pulse Resp B/P Pulse Ox O2 Delivery O2 Flow Rate FiO2 11/18/16 18:26 117 20 170/100 99 Room Air 11/18/16 18:01 120 22 169/74 98 Room Air 11/18/16 17:38 97 Room Air 11/18/16 17:24 154 26 11/18/16 17:24 98.6 152 26 181/120 98 Room Air 11/18/16 17:22 24 Physical Exam PE: GENERAL: Middle-aged white male in no acute distress, mildly tremulous. HEENT: PERRLA, EOMI. No scleral icterus or conjunctival pallor. No lid lag or facial droop. CARDIOVASCULAR: Regular rate and rhythm. No obvious murmurs to auscultation. No chest tenderness to palpation. RESPIRATORY: No obvious rhonchi or wheezing. Clear to auscultation. Breath sounds equal bilaterally. GASTROINTESTINAL: Abdomen soft, non-tender, nondistended. BS normal. MUSCULOSKELETAL: Extremities without clubbing, cyanosis, or edema. No obvious deformities. NEUROLOGICAL: Awake, alert and oriented x4. No focal neurologic deficits. Moving both upper and lower extremities spontaneously. Laboratory Laboratory Tests Test 11/18/16 17:44 White Blood Count 8.1 Red Blood Count 4.54 Hemoglobin 15.0 Hematocrit 44.7 Mean Corpuscular Volume 98.4 Mean Corpuscular Hemoglobin 33.1 Mean Corpuscular Hemoglobin 33.6 Concent Red Cell Distribution Width 15.7 Platelet Count 60 Mean Platelet Volume 9.0 Neutrophils (%) (Auto) 78.3 Lymphocytes (%) (Auto) 11.8 Monocytes (%) (Auto) 9.1 Eosinophils (%) (Auto) 0.0 Basophils (%) (Auto) 0.8 Neutrophils # (Auto) 6.3 Lymphocytes # (Auto) 1.0 Monocytes # (Auto) 0.7 Eosinophils # (Auto) 0.0 Basophils # (Auto) 0.1 CBC Comment AUTO DIFF Differential Total Cells 100 Counted Neutrophils % (Manual) 82 Band Neutrophils % 4 Lymphocytes % 6 Monocytes % 7 Neutrophils # (Manual) 7.0 Metamyelocytes 1 Differential Comment FINAL DIFF MANUAL Platelet Estimate LOW Platelet Morphology Comment NORMAL Red Cell Morphology Comment NORMAL Sodium Level 139 Potassium Level 3.7 Chloride Level 95 Carbon Dioxide Level 16.8 Anion Gap 27 Blood Urea Nitrogen 7 Creatinine 1.51 Estimat Glomerular Filtration 48 Rate Random Glucose 161 Calcium Level 9.2 Magnesium Level 1.4 Total Bilirubin 1.8 Aspartate Amino Transf 100 (AST/SGOT) Alanine Aminotransferase 69 (ALT/SGPT) Alkaline Phosphatase 83 Total Protein 8.7 Albumin 4.6 Ethyl Alcohol Level LESS THAN 3 Result Diagram: 11/18/16174311/18/161743 Assessment and Plan Problem List: (1) Alcohol withdrawal ICD Code: F10.239 Status: Acute (2) BLANCA (acute kidney injury) ICD Code: N17.9 Status: Acute (3) Dehydration ICD Code: E86.0 Status: Acute (4) Thrombocytopenia ICD Code: D69.6 Status: Acute (5) HTN (hypertension) ICD Code: I10 Status: Acute (6) DM (diabetes mellitus) ICD Code: E11.9 Status: Acute (7) Tobacco abuse ICD Code: Z72.0 Status: Acute Assessment and Plan A/P: 1. Alcohol Abuse: w/ Acute Alcohol Withdrawal, drinks daily, last drink approx 3 days ago, progressive tremors/anxiety. +tremulous on exam. CIWA, Seizure Precautions, MVT/Thiamine/Folate replacement. 2. BLANCA: Creatinine 1.51, previously 0.87 on 07/30/16. Continue IVF, recheck labs in a.m. 3. Dehydration: secondary to acute alcohol withdrawal, AG 27, GFR 48, elevated creatinine 1.51. IVF for hydration, repeat labs in am. 4. Thrombocytopenia: Platelets 60, previously 259 on 07/30/16. No active bleeding. Will monitor, repeat labs in am. 5. HTN: BP 180's systolic, likely compounded by Acute Alcohol Withdrawal, treat withdrawal, monitor BP. Hold Lisinopril in light of renal insufficiency. 6. DM: Sliding scale w/ Accu-Cheks. Hold Metformin in light of elevated creatinine. 7. Tobacco Abuse: Counselled. Ativan/NicoDerm prn if needed. 8. DVT Prophylaxis: SCD/Teds. 9. Social work for d/c planning as needed. 10. Case discussed w/ ER physician at length. Physician Certification 2 Midnight Certification Type: Admission for Inpatient Services Order for Inpatient Services The services are ordered in accordance with Medicare regulations or non- Medicare payer requirements, as applicable. In the case of services not specified as inpatient-only, they are appropriately provided as inpatient services in accordance with the 2-midnight benchmark. Estimated LOS (days): 2 days is the estimated time the patient will need to remain in the hospital, assuming treatment plan goals are met and no additional complications. Post-Hospital Plan: Not yet determined Problem Qualifiers (1) Alcohol withdrawal: Qualified Code: F10.232 - Alcohol withdrawal, with perceptual disturbance Bernadine Parkinson MD Nov 18, 2016 19:42
[2016-11-18] MEDS ORDERED: SODIUM CHLORIDE 0.9% FLUSH 10 ML FLUSH IV FLUSH PRN (19:45)
[2016-11-18] MEDS ORDERED: BISACODYL 10 MG SUPP RECTAL PRN (19:45)
[2016-11-18] MEDS ORDERED: GLUCAGON 1 MG/ML VIAL OTHER PRN (19:45)
[2016-11-18] MEDS ORDERED: ACETAMINOPHEN 325 MG TAB PO PRN (19:45)
[2016-11-18] MEDS ORDERED: MAGNESIUM HYDROXIDE SUSP 30 ML CUP PO PRN (19:45)
[2016-11-18] MEDS ORDERED: SENNOSIDES 8.6 MG TAB PO PRN (19:45)
[2016-11-18] MEDS ORDERED: ONDANSETRON HCL 4 MG/2 ML VIAL IVP PRN (19:45)
[2016-11-18] MEDS ORDERED: DEXTROSE 50% IN WATER 50 ML VIAL(D50) IV PRN (19:45)
[2016-11-18] MEDS ORDERED: LACTULOSE SYRUP 20 GM/30 ML CUP PO PRN (19:45)
[2016-11-18] MEDS: DEXT 5%-NACL 0.45% 1000 ML INJ 1,000 ML IV SCH (20:47)
[2016-11-18] MEDS: INSULIN ASPART SUPPLEMENTAL SCALE SQ SCH (20:48)
[2016-11-18 21:23] LABS: AMPHETAMINE, URINE NEG (NEG); BARBITURATES, URINE NEG (NEG); COCAINE, URINE NEG (NEG)
[2016-11-18 22:27] VITALS: BP 156/95; PULSE 100; RESP 20; O2SAT 98
[2016-11-19] VITALS (8 sets, daily range): BP systolic 142–156; BP diastolic 89–104; PULSE 75–103; RESP 16–20; TEMP 96.4–100; O2SAT 96–98
[2016-11-19] MEDS: INSULIN ASPART SUPPLEMENTAL SCALE SQ SCH ×4 (05:39→23:44)
[2016-11-19] MEDS: DEXT 5%-NACL 0.45% 1000 ML INJ 1,000 ML IV SCH ×3 (05:41→23:41)
[2016-11-19] MEDS: LORazepam 1 MG TAB PO PRN ×3 (06:06→17:39)
[2016-11-19 07:27] LABS: AUTOMATED NEUTROPHIL # 3.3 TH/MM3 (1.8-7.7); BASOPHIL % 0.2 % (0.0-2.0); EOSINOPHIL % 0.5 % (0.0-4.0); HEMATOCRIT 37.4 % (39.0-51.0); LYMPH % 5.9 % (9.0-44.0); LYMPHOCYTE # 0.2 TH/MM3 (1.0-4.8); MEAN CELL VOLUME 95.6 FL (80.0-100.0); MEAN CORPUSCULAR HEMOGLOBIN 33.7 PG (27.0-34.0); MEAN CORPUSCULAR HGB CONC 35.2 % (32.0-36.0); MONO % 10.5 % (0.0-8.0); NEUT % 82.9 % (16.0-70.0); PLATELET COUNT 35 TH/MM3 (150-450); RED BLOOD COUNT 3.91 MIL/MM3 (4.50-5.90); RED CELL DISTRIBUTION WIDTH 15.8 % (11.6-17.2)
[2016-11-19 08:05] LABS: ALKALINE PHOSPHATASE 56 U/L (45-117); ALT (GPT) 48 U/L (12-78); ANION GAP 10 MEQ/L (5-15); AST (GOT) 65 U/L (15-37); BICARBONATE 26.9 MEQ/L (21.0-32.0); BLOOD UREA NITROGEN 5 MG/DL (7-18); CHLORIDE 97 MEQ/L (98-107); GLOMERULAR FILTRATION RATE 127 ML/MIN (>89); SODIUM (NA) 134 MEQ/L (136-145); TOTAL BILIRUBIN ADULT 1.6 MG/DL (0.2-1.0)
[2016-11-19 08:09] LABS: POTASSIUM 2.8 MEQ/L (3.5-5.1)
[2016-11-19 08:17] LABS: HEMO FLAGS AUTO DIFF
[2016-11-19 08:19] LABS: BANDS 6 % (0-6); NEUTROPHIL # MANUAL DIFF 3.3 TH/MM3 (1.8-7.7); PLATELET ESTIMATE SMEAR LOW (NORMAL); PLATELET MORPHOLOGY NORMAL (NORMAL); POLYS (SEG NEUTROPHILS) 77 % (16-70); SCAN/DIFF FINAL DIFF MANUAL; WBC DIFF SAMPLE 100
[2016-11-19] MEDS ORDERED: POTASSIUM CHLORIDE 10 MEQ CONTROLLED RELEASE TAB PO ONE (08:30)
[2016-11-19] MEDS: FOLIC ACID 1 MG TAB PO SCH (09:02)
[2016-11-19] MEDS: MULTIVITAMINS/MINERALS THERAPEUTIC TAB PO SCH (09:03)
[2016-11-19] MEDS: THIAMINE HCL 100 MG TAB PO SCH (09:03)
[2016-11-19] MEDS: DOCUSATE SODIUM 50 MG/SENNA 8.6 MG TAB PO SCH ×2 (09:04→21:00)
[2016-11-19] MEDS: SODIUM CHLORIDE 0.9% FLUSH 10 ML FLUSH IV FLUSH SCH ×2 (09:04→23:39)
[2016-11-19] MEDS ORDERED: cloNIDine HCL 0.1 MG TAB PO PRN (12:30)
[2016-11-19] MEDS: LISINOPRIL 5 MG TAB PO SCH (12:49)
--- NOTE | 2016-11-19 13:12 | HHI.PR ---
Subjective Remarks Follow-up alcohol withdrawal/acute renal failure 11/19/16-patient seen and examined, alert and oriented 3, hand tremors . BP slightly up Objective Vitals Vital Signs Date Time Temp Pulse Resp B/P Pulse Ox O2 Delivery O2 Flow Rate FiO2 11/19/16 13:05 75 11/19/16 12:19 96.4 87 16 150/104 96 11/19/16 08:28 98.7 86 16 146/99 96 11/19/16 04:00 99.5 86 20 143/89 97 11/19/16 03:00 86 11/19/16 00:00 100.0 88 20 156/100 96 11/18/16 22:27 100 20 156/95 98 Room Air 11/18/16 18:26 117 20 170/100 99 Room Air 11/18/16 18:01 120 22 169/74 98 Room Air 11/18/16 17:38 97 Room Air 11/18/16 17:24 154 26 11/18/16 17:24 98.6 152 26 181/120 98 Room Air 11/18/16 17:22 24 I/O 11/18/16 11/18/16 11/18/16 11/19/16 11/19/16 11/19/16 07:00 15:00 23:00 07:00 15:00 23:00 Intake Total 681 ml Output Total 600 ml 675 ml Balance 81 ml -675 ml Intake IV Total 681 ml Output Urine Total 600 ml 675 ml Result Diagram: 11/19/1662011/19/1621 Objective Remarks GENERAL: NAD with bilateral hand tremors SKIN: Warm and dry. HEAD: Normocephalic. EYES: No scleral icterus. No injection or drainage. NECK: Supple, trachea midline. No JVD or lymphadenopathy. CARDIOVASCULAR: Regular rate and rhythm without murmurs, gallops, or rubs. RESPIRATORY: Breath sounds equal bilaterally. No accessory muscle use. GASTROINTESTINAL: Abdomen soft, non-tender, nondistended. MUSCULOSKELETAL: No cyanosis, or edema. BACK: Nontender without obvious deformity. No CVA tenderness. A/P Problem List: (1) Alcohol withdrawal ICD Code: F10.239 Status: Acute (2) BLANCA (acute kidney injury) ICD Code: N17.9 Status: Acute (3) Dehydration ICD Code: E86.0 Status: Resolved (4) Thrombocytopenia ICD Code: D69.6 Status: Chronic (5) HTN (hypertension) ICD Code: I10 Status: Chronic (6) DM (diabetes mellitus) ICD Code: E11.9 Status: Chronic (7) Tobacco abuse ICD Code: Z72.0 Status: Chronic Assessment and Plan 55-year-old man with 1. Alcohol Abuse: w/ Acute Alcohol Withdrawal. Counseled to quit, continue with CIWA, Seizure Precautions, MVT/Thiamine/Folate replacement. 2. BLANCA: Resolved with IV fluid hydration. 3. Dehydration: Resolved 4. Thrombocytopenia: Secondary to liver disease due to alcohol abuse. Platelets 60, previously 259 on 07/30/16. No active bleeding. Continue to monitor. 5. HTN: Resume Lisinopril and add clonidine when necessary. 6. DM: Sliding scale w/ Accu-Cheks. Resume metformin. 7. Tobacco Abuse: Counselled. Ativan/NicoDerm prn if needed. 8. DVT Prophylaxis: SCD/Teds 9 . Hypokalemia: Give 60 mEq of potassium and monitor Problem Qualifiers (1) Alcohol withdrawal: Qualified Code: F10.232 - Alcohol withdrawal, with perceptual disturbance Cem Weber MD Nov 19, 2016 13:12
--- NOTE | 2016-11-19 13:22 | EKG ---
Date Performed: 11/18/2016 Time Performed: 18:10:19 PTAGE: 55 years EKG: SINUS TACHYCARDIA LOW QRS VOLTAGE IN PRECORDIAL LEADS ABNORMAL RHYTHM ECG PREVIOUS TRACING : 07/30/2016 18.11 Compared to prior tracing no significant change DOCTOR: Sherman Ritchie Interpretating Date/Time 11/19/2016 13:16:49
[2016-11-19] MEDS: metFORMIN HCL 500 MG TAB PO SCH (17:36)
[2016-11-20] VITALS: BP 132/86; PULSE 95; RESP 20; TEMP 98.6; O2SAT 96
[2016-11-20] MEDS: LORazepam 1 MG TAB PO PRN (04:28)
[2016-11-20 06:54] VITALS: BP 147/95; PULSE 84; RESP 20; TEMP 98; O2SAT 97
[2016-11-20] MEDS: INSULIN ASPART SUPPLEMENTAL SCALE SQ SCH (06:58)
[2016-11-20 08:00] VITALS: BP 136/87; PULSE 80; RESP 18; TEMP 98.2; O2SAT 95
[2016-11-20] MEDS: FOLIC ACID 1 MG TAB PO SCH (08:14)
[2016-11-20] MEDS: SODIUM CHLORIDE 0.9% FLUSH 10 ML FLUSH IV FLUSH SCH (08:14)
[2016-11-20] MEDS: THIAMINE HCL 100 MG TAB PO SCH (08:15)
[2016-11-20] MEDS: DOCUSATE SODIUM 50 MG/SENNA 8.6 MG TAB PO SCH (08:15)
[2016-11-20] MEDS: metFORMIN HCL 500 MG TAB PO SCH (08:15)
[2016-11-20] MEDS: MULTIVITAMINS/MINERALS THERAPEUTIC TAB PO SCH (08:15)
[2016-11-20] MEDS: LISINOPRIL 5 MG TAB PO SCH (08:15)
[2016-11-20 08:55] VITALS: PULSE 72
--- NOTE | 2016-11-20 09:37 | HHI.PR ---
Subjective Remarks Follow-up alcohol withdrawal/acute renal failure 11/19/16-patient seen and examined, alert and oriented 3, hand tremors . BP slightly up 11/20/16-patient seen and examined, CIWA score 2-4, however patient alert and oriented 3 and he is eager to be discharged home. Objective Vitals Vital Signs Date Time Temp Pulse Resp B/P Pulse Ox O2 Delivery O2 Flow Rate FiO2 11/20/16 08:55 72 11/20/16 08:00 98.2 80 18 136/87 95 11/20/16 06:54 98.0 84 20 147/95 97 11/20/16 00:00 98.6 95 20 132/86 96 11/19/16 20:00 98.9 103 20 146/90 96 11/19/16 16:24 98.7 93 16 142/96 98 11/19/16 13:05 75 11/19/16 12:19 96.4 87 16 150/104 96 I/O 11/19/16 11/19/16 11/19/16 11/20/16 11/20/16 11/20/16 07:00 15:00 23:00 07:00 15:00 23:00 Intake Total 681 ml 800 ml 720 ml Output Total 600 ml 675 ml 600 ml 800 ml Balance 81 ml 125 ml 120 ml -800 ml Intake Oral 720 ml IV Total 681 ml 800 ml Output Urine Total 600 ml 675 ml 600 ml 800 ml # Voids 1 # Bowel Movements 1 0 Result Diagram: 11/19/1662011/19/16620 Objective Remarks GENERAL: NAD SKIN: Warm and dry. HEAD: Normocephalic. EYES: No scleral icterus. No injection or drainage. NECK: Supple, trachea midline. No JVD or lymphadenopathy. CARDIOVASCULAR: Regular rate and rhythm without murmurs, gallops, or rubs. RESPIRATORY: Breath sounds equal bilaterally. No accessory muscle use. GASTROINTESTINAL: Abdomen soft, non-tender, nondistended. MUSCULOSKELETAL: No cyanosis, or edema. BACK: Nontender without obvious deformity. No CVA tenderness. Procedures none A/P Problem List: (1) Alcohol withdrawal ICD Code: F10.239 Status: Resolved (2) BLANCA (acute kidney injury) ICD Code: N17.9 Status: Resolved (3) Dehydration ICD Code: E86.0 Status: Resolved (4) Thrombocytopenia ICD Code: D69.6 Status: Chronic (5) HTN (hypertension) ICD Code: I10 Status: Chronic (6) DM (diabetes mellitus) ICD Code: E11.9 Status: Chronic (7) Tobacco abuse ICD Code: Z72.0 Status: Chronic Assessment and Plan 55-year-old man with 1. Alcohol Abuse: w/ Acute Alcohol Withdrawal and now resolved. Counseled to quit, continue with CIWA, Seizure Precautions, MVT/Thiamine/Folate replacement. 2. BLANCA: Resolved with IV fluid hydration. 3. Dehydration: Resolved 4. Thrombocytopenia: Secondary to liver disease due to alcohol abuse. Platelets 60, previously 259 on 07/30/16. No active bleeding. Continue to monitor. 5. HTN: Continue Lisinopril and clonidine when necessary. 6. DM: Sliding scale w/ Accu-Cheks and metformin. 7. Tobacco Abuse: Counselled. Ativan/NicoDerm prn if needed. 8. DVT Prophylaxis: SCD/Teds 9 . Hypokalemia: Status post replacement Problem Qualifiers (1) Alcohol withdrawal: Qualified Code: F10.232 - Alcohol withdrawal, with perceptual disturbance Cem Weber MD Nov 20, 2016 09:37
[2016-11-20] MEDS ORDERED: GNP100TA3 PO (09:40)
--- NOTE | 2016-11-20 09:43 | HHI.DS ---
Discharge Summary Admission Date Nov 18, 2016 at 19:30 Discharge Date: Nov 20, 2016 Admitting Diagnosis alcohol withdrawal, metabolic acidosis (1) Alcohol withdrawal ICD Code: F10.239 (2) BLANCA (acute kidney injury) ICD Code: N17.9 (3) Dehydration ICD Code: E86.0 (4) Thrombocytopenia ICD Code: D69.6 (5) HTN (hypertension) ICD Code: I10 (6) DM (diabetes mellitus) ICD Code: E11.9 (7) Tobacco abuse ICD Code: Z72.0 Procedures none Brief History - From Admission This is a 55-year-old male with a PMH of Anxiety, Depression, PTSD, DM, Alcohol Abuse, h/o Cocaine Abuse and Tobacco Abuse presented to the ER with complaints of anxiety and tremors. Per patient he was trying to stop drinking, quit cold turkey approx 3 days ago and has had ongoing tremors/anxiety. Denies fever, chills, cough or chest pain. On arrival, BP 181/120, HR 152, O2 sat 98% on RA, Afebrile. BP currently 170/100, HR 117. CBC unremarkable except for thrombocytopenia, platelets 60, previously 259 on 07/30/16. Creatinine 1.51, previously 0.87 on 07/30/16. AG 27. Alcohol negative. S/p 2L IVF and started on CIWA Protocol in ER. CBC/BMP: 11/19/16 0621 11/19/16 0621 Significant Findings Laboratory Tests Test 11/18/16 11/19/16 17:44 06:21 Platelet Count 60 TH/MM3 35 TH/MM3 (150-450) (150-450) Neutrophils (%) (Auto) 78.3 % 82.9 % (16.0-70.0) (16.0-70.0) Monocytes (%) (Auto) 9.1 % (0.0-8.0) 10.5 % (0.0-8.0) Neutrophils % (Manual) 82 % (16-70) 77 % (16-70) Lymphocytes % 6 % (9-44) Platelet Estimate LOW (NORMAL) LOW (NORMAL) Chloride Level 95 MEQ/L 97 MEQ/L (98-107) (98-107) Carbon Dioxide Level 16.8 MEQ/L (21.0-32.0) Anion Gap 27 MEQ/L (5-15) Creatinine 1.51 MG/DL (0.60-1.30) Estimat Glomerular Filtration 48 ML/MIN (>89) Rate Random Glucose 161 MG/DL 111 MG/DL (74-106) (74-106) Magnesium Level 1.4 MG/DL (1.5-2.5) Total Bilirubin 1.8 MG/DL 1.6 MG/DL (0.2-1.0) (0.2-1.0) Aspartate Amino Transf 100 U/L (15-37) 65 U/L (15-37) (AST/SGOT) Total Protein 8.7 GM/DL (6.4-8.2) Red Blood Count 3.91 MIL/MM3 (4.50-5.90) Hematocrit 37.4 % (39.0-51.0) Lymphocytes (%) (Auto) 5.9 % (9.0-44.0) Lymphocytes # (Auto) 0.2 TH/MM3 (1.0-4.8) Sodium Level 134 MEQ/L (136-145) Potassium Level 2.8 MEQ/L (3.5-5.1) Blood Urea Nitrogen 5 MG/DL (7-18) Calcium Level 7.7 MG/DL (8.5-10.1) PE at Discharge GENERAL: NAD SKIN: Warm and dry. HEAD: Normocephalic. EYES: No scleral icterus. No injection or drainage. NECK: Supple, trachea midline. No JVD or lymphadenopathy. CARDIOVASCULAR: Regular rate and rhythm without murmurs, gallops, or rubs. RESPIRATORY: Breath sounds equal bilaterally. No accessory muscle use. GASTROINTESTINAL: Abdomen soft, non-tender, nondistended. MUSCULOSKELETAL: No cyanosis, or edema. BACK: Nontender without obvious deformity. No CVA tenderness. Hospital Course Patient admitted secondary to alcohol withdrawal was started on rally pack, CIWA protocol and Librium when necessary along with seizure precaution. He was found to have acute renal failure which improved with IV fluid hydration. All electrolyte abnormalities were corrected accordingly. He was initially started on sliding scal oral metformin was added as renal function improved. Patient was continued on his medication for hypertension. DVT and GI prophylaxis were provided. Prior to discharge patient's condition improved and vital remained stable. Patient was strongly advised against alcohol. Pt Condition on Discharge: Stable Discharge Disposition: Discharge Home Discharge Time: <= 30 minutes Discharge Instructions DIET: Follow Instructions for: Diabetic Diet Activities you can perform: Regular-No Restrictions Follow up Referrals: PCP Follow-up - 1 Week New Medications: Thiamine HCl (Gnp Vitamin B-1) 100 Mg Tab 100 MG PO DAILY Alcohol Detox #30 TAB Continued Medications: Lisinopril (Lisinopril) 5 Mg Tab 5 MG PO DAILY Blood Pressure Management #30 Ref 0 TAB Metformin (Metformin) 500 Mg Tab 500 MG PO BIDPC With meals Blood Sugar Management #60 Ref 0 TAB Cem Weber MD Nov 20, 2016 09:43
== END 2016-11-20 11:11 | disposition home or self-care (01) | DRG 897 ==
LOC: NEPE 17:20 → NEDA 19:30 → N05A 11-19
PROVIDERS: ADMIT Hospitalist; ATTEND Hospitalist
DX: F10.239 Alcohol dependence with withdrawal, unspecified (principal); N17.9 Acute kidney failure, unspecified; E87.2 Acidosis; D69.59 Other secondary thrombocytopenia; E86.0 Dehydration; E11.9 Type 2 diabetes mellitus without complications; I10 Essential (primary) hypertension; E87.6 Hypokalemia; K76.9 Liver disease, unspecified; F43.10 Post-traumatic stress disorder, unspecified; F17.200 Nicotine dependence, unspecified, uncomplicated
CPT/HCPCS: 80053; 80307; 82948; 83735; 85007; 85027; 93005; 96374; J1815; J2060; J7030